=== PATIENT | male | born 1945 | race Caucasian/White ===

== ENCOUNTER 2018-04-13 09:40 | Inpatient (IN) | payer MEDICARE, OTHER, SELFPAY ==
[2018-04-13] VITALS (13 sets, daily range): BP systolic 127–145; BP diastolic 70–84; PULSE 61–82; RESP 16–18; TEMP 36.9–37.5; O2SAT 93–98; BMI 33.1
--- NOTE | 2018-04-13 10:42 | PCM.HP.STD ---
Problem List (1) Diabetes mellitus type 2 in obese Status: Acute (2) Left UVJ 2mm stone Status: Acute (3) Right renal cancer status post nephrecto Status: Chronic (4) Dyslipidemia Status: Chronic (5) Hypertension Status: Chronic History of Present Illness Date of Admission: 04/13/18 Chief Complaint: Left ureteric colic since Thursday The patient is a 73 year old M with history of rectal cancer status post nephrectomy about 8 years ago is being admitted on regular MedSurg floor directly from [place] [facility] after he had left ureteric colic since Thursday. Patient developed left flank pain on Thursday morning after he went for charge. He felt little nauseated and pain has gotten worse admitted came to [place] [facility] on Thursday evening. He had CT abdomen and was discharged on Cipro. His pain was little better and then again got worse yesterday for which he again went to [place] [facility] and had blood work, KUB x-ray and ultrasound. Denies fever, nausea or vomiting but he had chills. He is taking Cipro since Thursday. Patient also complained of his spot urine with intermittent and did not advocate urine output except few drops. Patient has Calderon catheter with no urine in urobag. ED blood work of 04/13/2018 shows normal CBC. BMP shows BUN 24, creatinine 2.1, glucose 159, phosphorus 4.3. UA[shows RBC 5-10 cells per hpf, pyuria negative trace bacteria. Nitrite negative and leukocyte esterase trace. ] Past Medical History Past Medical History (Chronic Problems): Chronic Problems Right renal cancer status post nephrecto (Chronic) Dyslipidemia (Chronic) Hypertension (Chronic) Allergies Sulfa (Sulfonamide Antibiotics) Allergy (Verified 04/13/18 09:59) Hives pregabalin [From Lyrica] Adverse Reaction (Verified 04/13/18 09:59) EXTREMELY VIOLENT Home Medications: Ambulatory Orders Medication Instructions Recorded Amlodipine [Norvasc] 5 mg PO DAILY 04/13/18 Aspirin [Aspirin, Baby] 81 mg PO QHS 04/13/18 Dulaglutide [Trulicity] 1.5 mg SQ QWEEK 04/13/18 Losartan Potassium [Losartan 50 mg PO QHS 04/13/18 Potassium] Metformin HCl 1,000 mg PO BID 04/13/18 Metoprolol Succinate [Toprol Xl] 25 mg PO DINNER 04/13/18 glipiZIDE [Glucotrol] 10 mg pe PO BID 04/13/18 Smoking Status: Former smoker - *Family History Paternal History Items: No pertinent history Review of Systems Constitutional: Reports: Chills HEENT: Denies: Head Aches, Sinus Congestion, Sinus Drainage Cardiovascular: Denies: Chest Pain, Palpitations Respiratory: Denies: Cough, Shortness of breath at rest, Sputum production Gastrointestinal: Reports: Abdominal Pain, Nausea. Denies: Vomiting Genitourinary: Reports: Retention, -. Denies: Dysuria Musculoskeletal: Denies: Joint Pain, Joint Tenderness Skin: Denies: Rash, Wounds Neurological: Denies: Numbness, Tingling, Focal weakness Psychiatric: Denies: Anxiety, Depression, Homicidal Ideations, Suicidal Ideations Hematologic/ Lymphatic: Denies: Easy Bruising, Easy Bleeding VTE Information - Inpt Only VTE Present on Admission: No VTE Mechan Device Prophylaxis: None VTE Pharm Prophylaxis ordered?: Yes Patient Problems: Active and Suspected Problems Diabetes mellitus type 2 in obese (Acute) Left UVJ 2mm stone (Acute) - Physical Exam General: Alert, Oriented x3, Cooperative HEENT: Atraumatic, PERRLA, EOMI, Normocephalic Neck: Supple, No JVD, Negative Carotid Bruits Lungs: Clear to auscultation, Normal air movement Cardiovascular: Regular rate, Normal S1, Normal S2, No murmurs Abdomen: Bowel Sounds Present, Soft, Tender - Severe tenderness present over left flank. Extremities: No edema, Capillary Refill Less than 3 Seconds Skin: No rashes, No breakdown Musculoskeletal: No Tenderness to Palpation of Joints or Extremities Neurological: Cranial nerves II-XII grossly intact Psych/Mental Status: Normal Affect, Appropriate Vital Signs Temp Pulse Resp BP Pulse Ox 98.6 F 80 18 145/75 H 96 04/13/18 10:00 04/13/18 10:28 04/13/18 10:00 04/13/18 10:00 04/13/18 10:00 Oxygen Delivery Method Room Air Weight: 231 lb Body Mass Index (BMI) 33.1 Assessment/Plan All Active Problems Diabetes mellitus type 2 in obese (Acute) Left UVJ 2mm stone (Acute) The patient is a 73 year old M with history of rectal cancer status post nephrectomy about 8 years ago is being admitted on regular MedSurg floor directly from [place] [facility] after he had left ureteric colic since Thursday. Patient developed left flank pain on Thursday morning after he went for charge. He felt little nauseated and pain has gotten worse admitted came to [place] [facility] on Thursday evening. He had CT abdomen and was discharged on Cipro. His pain was little better and then again got worse yesterday for which he again went to [place] [facility] and had blood work, KUB x-ray and ultrasound. He describes pain left flank radiating to left groin. Denies fever, nausea or vomiting but he had chills. He is taking Cipro since Thursday. Patient also complained of his spot urine with intermittent and did not advocate urine output except few drops. Patient has Calderon catheter with no urine in urobag. ED blood work of 04/13/2018 shows normal CBC. BMP shows BUN 24, creatinine 2.1, glucose 159, phosphorus 4.3. UA[shows RBC 5-10 cells per hpf, pyuria negative trace bacteria. Nitrite negative and leukocyte esterase trace. 1. Left ureteric colic most probably secondary to left UVJ stone, to December 27 size: Patient had workup in [place] ER with CBC, BMP, x-ray and ultrasound and earlier CT abdomen. CD is sent to radiology for upload. KUB is reported as no calcification within the expected location of left ureter. 3 mm calcification in the right pelvis corresponding to phleboliths on CT. Ultrasound kidney shows mild left hydronephrosis and 4.1 x 2.8 x 3.0 cm cortical exophytic cyst superior pole left kidney. Status post right nephrectomy. UA with reflex urine culture ordered. Urology consult to Dr. Elise for possible cystoscopy with left ureteric stent. Continue Cipro as it seems responding. 2. Acute kidney injury most probably secondary to postobstructive ureteric stone: His baseline creatinine is 1.0 as per the patient currently creatinine is 2.1, BUN 21. IV fluid normal saline. Rest as admission above. Hold nephrotoxic medications including oral hypoglycemic agent, metformin and losartan. 3. Right renal cancer status post nephrectomy: He did not require any further treatment after nephrectomy. In remission. 4. That is mellitus type II: Blood sugar is elevated Accu-Chek before meals and at bedtime and cover with NovoLog sliding insulin and long-acting insulin. 5. Other comorbidities include dyslipidemia, hypertension: Home medication reconciliation done. DVT prophylaxis: On heparin 5000 units subcutaneous twice daily. Code Visit Inpatient E&M: 73695 Init Hosp L3
--- NOTE | 2018-04-13 12:51 | PCM.CONS.U ---
Problem List (1) Left UVJ 2mm stone Status: Acute Comment: Solitary left kidney Reason for Consult Date of Consultation: 04/13/18 Reason for Consultation: 73-year-old male with solitary left kidney obstructing kidney stone History of Present Illness: The patient is a 73 year old male with a solitary left kidney has an obstructing kidney stone. He is transferred to an outside hospital is not making any urine his creatinine is up to 2.2. He has a catheter in place and no urine output I flushed the catheter the catheters in good position. He is having severe left flank pain Past Medical History Past Medical History (Chronic Problems): Chronic Problems Right renal cancer status post nephrecto (Chronic) Dyslipidemia (Chronic) Hypertension (Chronic) Allergies Sulfa (Sulfonamide Antibiotics) Allergy (Verified 04/13/18 09:59) Hives pregabalin [From Lyrica] Adverse Reaction (Verified 04/13/18 09:59) EXTREMELY VIOLENT Home Medications: Ambulatory Orders Medication Instructions Recorded Amlodipine [Norvasc] 5 mg PO DAILY 04/13/18 Aspirin [Aspirin, Baby] 81 mg PO QHS 04/13/18 Dulaglutide [Trulicity] 1.5 mg SQ QWEEK 04/13/18 Losartan Potassium [Losartan 50 mg PO QHS 04/13/18 Potassium] Metformin HCl 1,000 mg PO BID 04/13/18 Metoprolol Succinate [Toprol Xl] 25 mg PO DINNER 04/13/18 glipiZIDE [Glucotrol] 10 mg pe PO BID 04/13/18 Surgical History: - - Right radical nephrectomy Psychiatric History: No pertinent psych hx Lives: Spouse/ Significant Other Smoking Status: Former smoker Alcohol: None Drugs: None - *Family History Paternal History Items: No pertinent history Review of Systems Constitutional: Denies: Chills, Fever, Weight Change HEENT: Denies: Head Aches, Sinus Congestion, Sinus Drainage Cardiovascular: Denies: Chest Pain, Palpitations Respiratory: Denies: Cough, Shortness of breath at rest, Sputum production Gastrointestinal: Reports: - - No urine output. Denies: Abdominal Pain, Nausea, Vomiting Genitourinary: Denies: Dysuria Musculoskeletal: Denies: Joint Pain, Joint Tenderness Skin: Denies: Rash, Wounds Neurological: Denies: Numbness, Tingling, Focal weakness Psychiatric: Denies: Anxiety, Depression, Homicidal Ideations, Suicidal Ideations Hematologic/ Lymphatic: Denies: Easy Bruising, Easy Bleeding Physical Exam - Physical Exam Vital Signs Temp 98.6 F 04/13/18 10:00 Pulse 80 04/13/18 10:28 Resp 18 04/13/18 10:00 BP 145/75 H 04/13/18 10:00 Pulse Ox 96 04/13/18 10:00 Intake & Output 04/11/18 04/12/18 04/13/18 23:59 23:59 23:59 Weight: 104.78 kg General: Alert, Oriented x3 HEENT: Atraumatic Oral: Moist Mucosa Neck: Supple Cardiovascular: Regular rate Abdomen: Bowel Sounds Present, Soft Assessment/Plan All Active Problems Diabetes mellitus type 2 in obese (Acute) Left UVJ 2mm stone (Acute) 73-year-old male presents to the hospital an obstructing stone read on an outside CT scan of his left kidney is a history of kidney cancer and had a right radical nephrectomy about 8 years ago. Currently has a Calderon catheter in place with is not making any urine whatsoever is an uric. I believe he has complete obstruction from the small stone in the distal left ureter. Planted taken to surgery today for cystoscopy left retrograde pyelogram and left stent placement.
[2018-04-13 13:00] LABS: Bedside Glucose 181 mg/dL (70-110)
[2018-04-13] MEDS: Insulin Lispro 100 UNIT/ML INSULN.PEN SQ (13:02)
[2018-04-13] MEDS: Ciprofloxacin 200 MG/100 ML BAG 100 MG IV ×2 (13:02→21:56)
[2018-04-13] MEDS: 0.9% NaCl Peripheral Flush Adult/Peds IV (13:03)
[2018-04-13] MEDS: Morphine 2 MG/ML Syringe IV (13:04)
[2018-04-13] MEDS: 0.9% Normal Saline 1,000 ML 100 ML IV (13:15)
--- NOTE | 2018-04-13 15:22 | NURSING ---
Report called to Cierra CUN[place] in [facility].
[2018-04-13] MEDS: Metoprolol(XL)Succ 25 MG Tablet PO (16:45)
[2018-04-13 17:00] LABS: Bedside Glucose 143 mg/dL (70-110)
[2018-04-13] MEDS: Lidocaine Jelly 2% 20 ML Syringe (URO-JET) 20 APPLIC (17:20)
--- NOTE | 2018-04-13 17:31 | PCM.OPRPT ---
Problem List (1) Left UVJ 2mm stone Status: Acute Comment: Solitary left kidney Report of Operation Date of Procedure: 04/13/18 Pre-Operative Diagnosis: Obstructing left ureteral calculus in solitary kidney Post-Operative Diagnosis: Same Surgery/Procedure Performed:: Cystoscopy left retrograde pyelogram left stent placement Description of Surgical Findings:: 73-year-old male was taken back to the operating room at the smooth induction of MAC local he is placed supine on the table and then in dorsal lithotomy position the penis and testicles are prepped and draped in usual sterile fashion put lidocaine jelly into the urethra and then went into the bladder with a 21 [place] rigid cystourethroscope the entire length of the urethra is normal the prostate was slightly enlarged inside the bladder he had some what of a trabeculated bladder and thickened bladder identified the left ureteral orifice advanced a wire up the left side over the wire advanced the Pollack catheter performed a left retrograde pyelogram demonstrated contrast within the collecting system a mildly dilated system but not completely blown out I then advanced the Pollack catheter up on the left side left the wire in place and over the wire advanced a stent it was a 7 [place] 26 cm stent coiled in the kidney and bladder good position the bladder was drained and then put a catheter into the bladder for monitoring of his urine output he did appear dehydrated at this point he stented to relieve obstruction he should be rehydrated to produce more urine. Patient anesthetic is being reversed and on follow-up he will need to follow-up with urology to plan for extraction of the stone in the near future. Type of Anesthesia:: General Drains: velasquez, stent - Admit VTE Documentation VTE Present on Admission: No VTE Mechan Device Prophylaxis: SCD's
[2018-04-13] MEDS: Aspirin 81 MG TAB.CHEW PO (22:02)
[2018-04-13] MEDS: Heparin Injection (Vial) 5,000 UNIT/ML VIAL 5000 UNIT SC (22:03)
[2018-04-13] MEDS: 0.9% Normal Saline 1,000 ML 125 ML IV (22:03)
[2018-04-14 04:30] VITALS: BP 152/88; PULSE 67; RESP 18; TEMP 37.3; O2SAT 96
[2018-04-14 06:14] LABS: Absolute Lymphocyte Count 1.62 X10^3/ul (0.83-4.51); Absolute Neutrophil Count 4.1 X10^3/uL (2.0-7.7); Basophil# 0.01 X10^3/uL; Basophil% 0.1 % (0-1); Eosinophil# 0.13 X10^3/uL; Eosinophils% 1.9 % (0-5); Hematocrit 39.4 % (40-54); Hemoglobin 13.1 g/dl (13.0-16.5); Lymphocyte # 1.62 X10^3/ul (4.0); Lymphocyte % 24.3 % (19-41); Mean Corp Hgb Conc 33.2 g/gl (32-36); Mean Corpuscular Hgb 30.4 pg (27.0-32.0); Mean Corpuscular Volume 91.4 fL (80-94); Monocyte# 0.79 X10^3/uL; Monocyte% 11.8 % (0-10); Neutrophil # 4.12 X10^3/uL (2.7-7.7); Neutrophil % 61.8 % (47-70); Platelet Count 117 K/mm3 (150-450); RBC Distribution Width SD 42.5 fl (35.1-43.9); Red Blood Count 4.31 M/mm3 (4.6-6.2); White Blood Count 6.7 K/mm3 (4.4-11.0)
[2018-04-14 06:16] LABS: POSITIVE COUNT NO; POSITIVE DIFFERENTIAL NO; POSITIVE MORPHOLOGY NO
[2018-04-14] MEDS: 0.9% Normal Saline 1,000 ML 125 ML IV (06:21)
[2018-04-14 06:30] LABS: Anion Gap 10 (5-15); BUN 24 mg/dL (7-18); Calcium,Total 8.7 mg/dL (8.5-10.1); Chloride 113 mmol/L (98-107); EST Glomerular Filtration Rate 29 mL/min (>60); Est Glom Filt Rate - Afr Amer 35 mL/min (>60); Estimated Creatinine Clearance 29.15 ml/min; Glucose 110 mg/dL (74-106); Potassium 4.6 mmol/L (3.5-5.1); Sodium Level 144 mmol/L (136-145)
[2018-04-14 08:20] VITALS: BP 151/80; PULSE 71; RESP 18; TEMP 37.1; O2SAT 94
[2018-04-14 08:49] VITALS: PULSE 80
[2018-04-14] MEDS: Ciprofloxacin 200 MG/100 ML BAG 100 MG IV (10:00)
[2018-04-14] MEDS: Heparin Injection (Vial) 5,000 UNIT/ML VIAL 5000 UNIT SC ×2 (10:01→21:26)
[2018-04-14] MEDS: amLODIPine 5 MG Tablet PO (10:02)
--- NOTE | 2018-04-14 10:09 | PCM.PN.HOSP ---
Patient Problems: Active and Suspected Problems Diabetes mellitus type 2 in obese (Acute) Left UVJ 2mm stone (Acute) Solitary left kidney Subjective: Patient did not had fever. Patient had cystoscopy with retrograde pyelogram and stent placed by Dr. Elise. Patient has Mild hematuria in the uro bag. Creatinine went up. Urine culture pending. Vitals/I&O's: Vital Signs Temp Pulse Resp BP Pulse Ox 98.7 F 80 18 151/80 H 94 04/14/18 08:20 04/14/18 08:49 04/14/18 08:20 04/14/18 08:20 04/14/18 08:20 Oxygen Flow Rate (L/min) 2 Oxygen Delivery Method Room Air Weight: 231 lb Body Mass Index (BMI) 33.1 Intake and Output for Last 24 Hours 04/12/18 04/13/18 04/14/18 23:59 23:59 23:59 Intake Total 600 / 600 2190 / 2190 Output Total 175 / 175 2700 / 2700 Balance 425 / 425 -510 / -510 General: Alert, Oriented x3, Cooperative HEENT: Atraumatic, PERRLA, EOMI, Normocephalic Neck: Supple, No JVD, Negative Carotid Bruits Lungs: Clear to auscultation, Normal air movement Cardiovascular: Regular rate, Regular Rhythm, Normal S1, Normal S2, No murmurs Abdomen: Bowel Sounds Present, Soft, Non Tender, Non-Distended, - - Calderon Catheter shows bloody urine but mild. Extremities: No edema, Capillary Refill Less than 3 Seconds Skin: No rashes, No breakdown Musculoskeletal: No Tenderness to Palpation of Joints or Extremities, Arthritic Changes Neurological: Cranial nerves II-XII grossly intact, Neuro grossly intact Psych/Mental Status: Normal Affect, Appropriate Laboratory Results 04/13/18 12:55: POC Glucose 181 H 04/13/18 16:43: POC Glucose 143 H 04/14/18 05:54: WBC 6.7, RBC 4.31 L, Hgb 13.1, Hct 39.4 L, MCV 91.4, MCH 30.4, MCHC 33.2, RDW 13.0, RDW Differential 42.5, Plt Count 117 L, MPV 11.0, Immature Gran % (Auto) 0.100, Neut % (Auto) 61.8, Lymph % (Auto) 24.3, [place] % (Auto) 11.8 H, Eos % (Auto) 1.9, Baso % (Auto) 0.1, Absolute Neuts (auto) 4.1, Absolute Lymphs (auto) 1.62, Total Counted Not Reportable 04/14/18 05:54: Sodium 144, Potassium 4.6, Chloride 113 H, Carbon Dioxide 21.0, Anion Gap 10, BUN 24 H, Creatinine 2.40 H, Estim Creat Clear Calc 29.15, Est GFR (MDRD) Af Amer 35 L, Est GFR (MDRD) Non-Af 29 L, BUN/Creatinine Ratio 10.0, Glucose 110 H, Calcium 8.7 Current Medications Acetaminophen (Tylenol) 650 mg PO Q6H PRN PRN PRN Reason: Mild Pain (scale 0-3)/T>100.7 Amlodipine Besylate (Norvasc) 5 mg PO DAILY [facility] Last Admin: 04/14/18 10:02 Dose: 5 mg Aspirin (Aspirin, Baby) 81 mg PO QHS [facility] Last Admin: 04/13/18 22:02 Dose: 81 mg Bisacodyl (Dulcolax) 10 mg RECTAL DAILY PRN PRN PRN Reason: Constipation Dextrose (D50w Syringe) 0 gm IV X1 PRN; Protocol PRN Reason: Hypoglycemia Glucagon () 1 mg IM .X1 PRN PRN Reason: Hypoglycemia Heparin Sodium (Porcine) (Heparin Na) 5,000 unit SC BID [facility] Last Admin: 04/14/18 10:01 Dose: 5,000 unit Ciprofloxacin (Cipro) 200 mg in 100 mls @ 100 mls/hr IV Q12 [facility] Last Admin: 04/14/18 10:00 Dose: 100 mls/hr Insulin Glargine (Lantus (Bkc)) 10 units SC QHS [facility] Last Admin: 04/13/18 22:28 Dose: Not Given Insulin Human Lispro (Humalog Kwikpen (Bkc)) 0 unit SQ ACHS [facility] PRN Reason: Protocol Last Admin: 04/14/18 06:20 Dose: Not Given Magnesium Hydroxide (Milk Of Magnesia) 30 ml PO DAILY PRN PRN PRN Reason: Constipation Metoprolol Succinate (Toprol Xl (Beta Caro)) 25 mg PO DINNER [facility] Last Admin: 04/13/18 16:45 Dose: 25 mg Morphine Sulfate () 2 - 4 mg IV Q3H PRN PRN PRN Reason: Severe Pain (pain scale 6-10) Last Admin: 04/13/18 13:04 Dose: 4 mg Ondansetron HCl (Zofran) 4 mg IV Q6H PRN PRN PRN Reason: Nausea Oxycodone HCl (Oxyir) 5 mg PO Q4H PRN PRN PRN Reason: Moderate Pain (pain scale 4-5) Polyethylene Glycol (Miralax) 17 gm PO DAILY [facility] Last Admin: 04/14/18 10:02 Dose: Not Given Senna/Docusate Sodium (Senokot-S, Renata-Colace) 2 tablet PO BID PRN PRN Reason: constipation Sodium Chloride () 5 - 30 ml IV UD PRN PRN Reason: SALINE FLUSH Last Admin: 04/13/18 13:03 Dose: 10 ml Medical Necessity - Tobacco Use Smoking Status: Former smoker Assessment/Plan All Active Problems Diabetes mellitus type 2 in obese (Acute) Left UVJ 2mm stone (Acute) The patient is a 73 year old M with history of rectal cancer status post nephrectomy about 8 years ago is being admitted on regular MedSur floor directly from [place] [facility] after he had left ureteric colic since Thursday. Patient developed left flank pain on Thursday morning after he went for charge. He felt little nauseated and pain has gotten worse admitted came to [place] ER on Thursday evening. He had CT abdomen and was discharged on Cipro. His pain was little better and then again got worse yesterday for which he again went to [place] [facility] and had blood work, KUB x-ray and ultrasound. He describes pain left flank radiating to left groin. Denies fever, nausea or vomiting but he had chills. He is taking Cipro since Thursday. Patient also complained of his spot urine with intermittent and did not advocate urine output except few drops. Patient has Calderon catheter with no urine in urobag. ED blood work of 04/13/2018 shows normal CBC. BMP shows BUN 24, creatinine 2.1, glucose 159, phosphorus 4.3. UA[shows RBC 5-10 cells per hpf, pyuria negative trace bacteria. Nitrite negative and leukocyte esterase trace. 1. Left ureteric colic most probably secondary to left UVJ stone, to May 20 size: Patient had workup in [place] ER with CBC, BMP, x-ray and ultrasound and earlier CT abdomen. CD is sent to radiology for upload. KUB is reported as no calcification within the expected location of left ureter. 3 mm calcification in the right pelvis corresponding to phleboliths on CT. Ultrasound kidney shows mild left hydronephrosis and 4.1 x 2.8 x 3.0 cm cortical exophytic cyst superior pole left kidney. Status post right nephrectomy. UA shows 0 WBC count. Squamous epithelium 0-5 cells with negative nitrite and esterase. Urine culture negative. Last dose of Cipro today p.m. 2. Acute kidney injury most probably secondary to postobstructive ureteric stone: His baseline creatinine is 1.0 as per the patient currently creatinine is 2.1, BUN 21. BUN/creatinine 24/2.4. Continue IV fluid. Expect creatinine plateau or downward trend tomorrow. Patient wants to go home and was advised to stay till lab shows improvement in kidney function. Discussed with Dr. Elise. Rest as admission above. Hold nephrotoxic medications including oral hypoglycemic agent, metformin and losartan. 3. Right renal cancer status post nephrectomy: He did not require any further treatment after nephrectomy. In remission. 4. That is mellitus type II: Blood sugar is elevated Accu-Chek before meals and at bedtime and cover with NovoLog sliding insulin and long-acting insulin. 5. Other comorbidities include dyslipidemia, hypertension: Home medication reconciliation done. DVT prophylaxis: On heparin 5000 units subcutaneous twice daily. Laboratory Results 04/13/18 16:43: POC Glucose 143 H 04/14/18 05:54: WBC 6.7, RBC 4.31 L, Hgb 13.1, Hct 39.4 L, MCV 91.4, MCH 30.4, MCHC 33.2, RDW 13.0, RDW Differential 42.5, Plt Count 117 L, MPV 11.0, Immature Gran % (Auto) 0.100, Neut % (Auto) 61.8, Lymph % (Auto) 24.3, [place] % (Auto) 11.8 H, Eos % (Auto) 1.9, Baso % (Auto) 0.1, Absolute Neuts (auto) 4.1, Absolute Lymphs (auto) 1.62, Total Counted Not Reportable 04/14/18 05:54: Sodium 144, Potassium 4.6, Chloride 113 H, Carbon Dioxide 21.0, Anion Gap 10, BUN 24 H, Creatinine 2.40 H, Estim Creat Clear Calc 29.15, Est GFR (MDRD) Af Amer 35 L, Est GFR (MDRD) Non-Af 29 L, BUN/Creatinine Ratio 10.0, Glucose 110 H, Calcium 8.7 04/14/18 11:00: Urine Color Red, Urine Clarity Cloudy, Urine pH 6.0, Ur Specific [place] 1.010, Urine Protein 30 H, Urine Glucose (UA) Normal, Urine Ketones Negative, Urine Occult Blood 250 H, Urine Nitrite Negative, Urine Bilirubin Negative, Urine Urobilinogen Normal, Ur Leukocyte Esterase 25 H, Urine RBC > 100 SEEN, Urine WBC 0 SEEN, Ur Squamous Epith Cells 0-5 SEEN, Urine Bacteria RARE, Urine Mucus 0 SEEN Code Visit Inpatient E&M: 64153 Subs Hosp L3
--- NOTE | 2018-04-14 10:55 | CASEMGMT ---
OCTAVOI THOMAS Face to Face with patient for initial transition planning/care coordination assessment. RN MARTHA introduced self and role at [facility]. Patient lying in bed, alert and oriented. Patient willing to participate in assessment and is able to answer all questions appropriately. Care providers, pharmacy, and demographics verified. Patient lives with in a house and is independent at home. Patient has a Cpap at home. Pt wishes to discharge home, denies need for home health at this time. Patient states he has no further needs or concerns at this time. CM to follow for discharge planning needs that may arise. Disposition Plan: Patient to discharge home with family support and follow-up plans in place.
[2018-04-14 11:01] LABS: Mucous, Urine 0 SEEN /hpf (<or=2+); White Blood Cells 0 SEEN /hpf (0-5)
[2018-04-14 11:09] LABS: Color, Urine Red (Yellow); Glucose, Dipstick Normal (Normal); Ketone-Dipstick Negative (Negative); Leukocyte Esterase-Dipstick 25 /ul (Negative); Nitrite-Dipstick Negative (Negative); Occult Blood-Urine 250 /ul (Negative); Protein-Dipstick 30 mg/dl (Negative); Urine Bilirubin Dipstick Negative (Negative); Urine Clarity Cloudy (Clear); Urine Urobilinogen Normal (Normal)
[2018-04-14 11:14] LABS: Red Blood Cells-Urine > 100 SEEN /hpf (0-5)
[2018-04-14 11:15] LABS: Bacteria RARE /hpf (None Seen)
[2018-04-14 11:16] LABS: Squamous Epithelial Cells - UA 0-5 SEEN /hpf (0-5)
[2018-04-14] MEDS: Polyethylene Glycol 3350 17 GM PACKET PO (13:32)
[2018-04-14 15:00] VITALS: BP 140/80; PULSE 65; RESP 16; TEMP 36.7; O2SAT 95
--- NOTE | 2018-04-14 16:04 | NURSING ---
pt has chip blood glucose scanner noon was 160 and pt declined insulin will ameya glucose at supper time and re evaluate
[2018-04-14] MEDS: 0.9% Normal Saline 1,000 ML 100 ML IV (16:30)
[2018-04-14 16:58] VITALS: PULSE 86
[2018-04-14] MEDS: Metoprolol(XL)Succ 25 MG Tablet PO (16:58)
[2018-04-14] MEDS: Ciprofloxacin 250 MG Tablet PO (16:59)
[2018-04-14 20:00] VITALS: BP 153/87; PULSE 63; RESP 18; TEMP 37.4; O2SAT 95
[2018-04-14] MEDS: Acetaminophen 325 MG Tablet 650 MG PO (20:19)
[2018-04-14] MEDS: Aspirin 81 MG TAB.CHEW PO (21:26)
[2018-04-15 06:22] VITALS: BP 142/86; PULSE 66; RESP 18; TEMP 36.9; O2SAT 97
[2018-04-15 06:36] LABS: Anion Gap 8 (5-15); BUN 20 mg/dL (7-18); BUN/Creat Ratio 12.1 RATIO (10-20); Calcium,Total 9.4 mg/dL (8.5-10.1); Chloride 110 mmol/L (98-107); Creatinine, Serum 1.65 mg/dL (0.70-1.30); EST Glomerular Filtration Rate 44 mL/min (>60); Est Glom Filt Rate - Afr Amer 53 mL/min (>60); Glucose 125 mg/dL (74-106); Potassium 4.2 mmol/L (3.5-5.1); Sodium Level 144 mmol/L (136-145)
--- NOTE | 2018-04-15 07:18 | PCM.PN.BLA ---
Progress Note good uop cr coming down ok to go home call with questions.
[2018-04-15 07:49] VITALS: BP 140/88; PULSE 61; RESP 18; TEMP 37.1; O2SAT 92
--- NOTE | 2018-04-15 07:51 | PCM.DC ---
- Discharge Diagnoses Current Active Problems: Current Active and Chronic Problems Diabetes mellitus type 2 in obese (Acute) Left UVJ 2mm stone (Acute) Solitary left kidney Right renal cancer status post nephrecto (Chronic) Dyslipidemia (Chronic) Hypertension (Chronic) You will use the following diet at home:: Calorie/Carbohydrate Controlled (specify 1200, 1400, etc) - 1800 ADA diet Discharge Activity: Return to Normal Activity Allergies/Adverse Reactions: Allergies Sulfa (Sulfonamide Antibiotics) Allergy (Verified 04/13/18 09:59) Hives pregabalin [From Lyrica] Adverse Reaction (Verified 04/13/18 09:59) EXTREMELY VIOLENT Medications to take at Discharge Amlodipine [Norvasc] 5 mg PO DAILY 04/13/18 Aspirin [Aspirin, Baby] 81 mg PO QHS 04/13/18 Dulaglutide [Trulicity] 1.5 mg SQ QWEEK 04/13/18 Metoprolol Succinate [Toprol Xl] 25 mg PO DINNER 04/13/18 Losartan Potassium 50 mg PO QHS #0 04/15/18 Metformin HCl 1,000 mg PO BID #0 04/15/18 glipiZIDE [Glucotrol] 10 mg pe PO BID #0 04/15/18 Primary Care Physician: Clifton Gutierrez MD [Primary Care Provider] - Please follow up with your Primary Care Physician in: F/U BMP IN 1 week FOR JUANI secondary to left ureter stone Test Results: Test results from this visit will be discussed in further detail at your follow-up appointment, if applicable. Please Follow Up With: Hussein Elise MD When: IN 2-3 weeks
--- NOTE | 2018-04-15 07:54 | PCM.DC.SUM ---
Discharge Date and Diagnosis Date of Admission: 04/13/18 Date of Discharge: 04/15/18 - Primary Discharge Diagnosis Active and Suspected Problems Left ureteric colic most probably secondary to left UVJ stone, 20 mm size status post cystoscopy and left ureteric stent: UTI ruled out 2. Acute kidney injury most probably secondary to postobstructive ureteric stone: 3. Right renal cancer status post nephrectomy: 4. Diabetes mellitus type II: - Secondary Discharge Diagnosis Chronic Problems Right renal cancer status post nephrecto (Chronic) Dyslipidemia (Chronic) Hypertension (Chronic) Hospital Course and Treatment Summary of Care Provided: [] The patient is a 73 year old M with history of rectal cancer status post nephrectomy about 8 years ago is being admitted on regular MedSurg floor directly from [place] [facility] after he had left ureteric colic since Thursday. Patient developed left flank pain on Thursday morning after he went for charge. He felt little nauseated and pain has gotten worse admitted came to [place] [facility] on Thursday evening. He had CT abdomen and was discharged on Cipro. His pain was little better and then again got worse yesterday for which he again went to [place] [facility] and had blood work, KUB x-ray and ultrasound. He describes pain left flank radiating to left groin. Denies fever, nausea or vomiting but he had chills. He is taking Cipro since Thursday. Patient also complained of his spot urine with intermittent and did not advocate urine output except few drops. Patient has Calderon catheter with no urine in urobag. ED blood work of 04/13/2018 shows normal CBC. BMP shows BUN 24, creatinine 2.1, glucose 159, phosphorus 4.3. UA[shows RBC 5-10 cells per hpf, pyuria negative trace bacteria. Nitrite negative and leukocyte esterase trace. Patient was seen and examined. General: Alert, Oriented x3, Cooperative HEENT: Atraumatic, PERRLA, EOMI, Normocephalic Neck: Supple, No JVD, Negative Carotid Bruits Lungs: Clear to auscultation, Normal air movement Cardiovascular: Regular rate, Regular Rhythm, Normal S1, Normal S2, No murmurs Abdomen: Bowel Sounds Present, Soft, Non Tender, Non-Distended, -Calderon catheter discontinued. Patient voided spontaneously. Extremities: No edema, Capillary Refill Less than 3 Seconds Skin: No rashes, No breakdown Musculoskeletal: No Tenderness to Palpation of Joints or Extremities, Arthritic Changes Neurological: Cranial nerves II-XII grossly intact, Neuro grossly intact Psych/Mental Status: Normal Affect, Appropriate Hospital course and management as follows 1. Left ureteric colic most probably secondary to left UVJ stone, 20 mm size: Patient had workup in [place] [facility] with CBC, BMP, x-ray and ultrasound and earlier CT abdomen. KUB is reported as no calcification within the expected location of left ureter. 3 mm calcification in the right pelvis corresponding to phleboliths on CT. Ultrasound kidney shows mild left hydronephrosis and 4.1 x 2.8 x 3.0 cm cortical exophytic cyst superior pole left kidney. Status post right nephrectomy. Patient had cystoscopy and retrograde pyelogram and stenting in left ureter by Dr. Elise. UA shows 0 WBC count. Squamous epithelium 0-5 cells with negative nitrite and esterase. Urine culture negative. Urine culture did not show any growth. UA was also negative for UTI. Patient completed last dose of antibiotic yesterday, which was more prophylactic for cystoscopy and ureteric stent 2. Acute kidney injury most probably secondary to postobstructive ureteric stone: His baseline creatinine is 1.0 as per the patient currently creatinine is 2.1, BUN 21. BUN/creatinine 24/2.4. Continue IV fluid. Creatinine improved to 1.65. IV fluids discontinued Discussed with Dr. Elise. Rest as admission above. Hold nephrotoxic medications including oral hypoglycemic agent, metformin and losartan. 3. Right renal cancer status post nephrectomy: He did not require any further treatment after nephrectomy. In remission. 4. Diabetes mellitus type II: Blood sugar is elevated Accu-Chek before meals and at bedtime and cover with NovoLog sliding insulin and long-acting insulin. 5. Other comorbidities include dyslipidemia, hypertension: DVT prophylaxis: On heparin 5000 units subcutaneous twice daily. Discharge medication reconciliation done. Discharge follow-up instructions completed. Patient was advised to follow-up with Dr. Elise in 2 weeks. Follow with PCP. Total time spent, exact 35 minutes on discharge meds reconciliation, examination, review of imaging and blood test and discussion with the patient and his on follow-up instructions. Discharge Activity: Return to Normal Activity Home Medications: Medications to take at Discharge Amlodipine [Norvasc] 5 mg PO DAILY 04/13/18 Aspirin [Aspirin, Baby] 81 mg PO QHS 04/13/18 Dulaglutide [Trulicity] 1.5 mg SQ QWEEK 04/13/18 Metoprolol Succinate [Toprol Xl] 25 mg PO DINNER 04/13/18 Losartan Potassium 50 mg PO QHS #0 04/15/18 Metformin HCl 1,000 mg PO BID #0 04/15/18 glipiZIDE [Glucotrol] 10 mg pe PO BID #0 04/15/18 Primary Care Physician: Clifton Gutierrez MD [Primary Care Provider] - Please follow up with your Primary Care Physician in: F/U BMP IN 1 week FOR JUANI secondary to left ureter stone Please Follow Up With: Hussein Elise MD When: IN 2-3 weeks Medical Necessity - Tobacco Use Smoking Status: Former smoker Meaningful Use Info Meaningful Use Diagnoses (Choose all that apply): None applicable Code Visit Inpatient E&M: 49907 Disch Hosp
[2018-04-15] MEDS: amLODIPine 5 MG Tablet PO (07:56)
== END 2018-04-15 10:27 | disposition home or self-care (01) | DRG 694 ==
PROVIDERS: Urology; Admitting Provider Internal Medicine; Family Provider Internal Medicine; PCP Internal Medicine; Visit Provider Internal Medicine
PROC: 0T778DZ Dilation of Left Ureter with Intraluminal Device, Via Natural or Artificial Opening Endoscopic (ICD-10-PCS; principal; 2018-04-13 09:25)
DX: N13.2 Hydronephrosis with renal and ureteral calculous obstruction (principal); N17.9 Acute kidney failure, unspecified; E78.5 Hyperlipidemia, unspecified; I10 Essential (primary) hypertension; Z90.5 Acquired absence of kidney; E11.9 Type 2 diabetes mellitus without complications; Z87.891 Personal history of nicotine dependence; Z85.528 Personal history of other malignant neoplasm of kidney; Z79.899 Other long term (current) drug therapy
CPT/HCPCS: 36415; 76000; 80048; 81001; 82962; 85025; 87086; J7030; J7040; A4216; C1769; C1874; J0744

== ENCOUNTER → 2018-05-07 15:48 | Outpatient (CLI) | payer MEDICARE, OTHER, SELFPAY ==
--- NOTE | 2018-05-07 12:09 | CALC_PTH ---
PATIENT: BRYAN RAMIREZ LOC: [facility] U#:[id number] AGE/SX: 80/M ROOM: RE05/07/[address]: Dr. Hussein Elise MD : 1945 BED: DIS: SPEC #: [id number] RECD: 05/07/18 17:02 STATUS: YOCASTA RO #: [id number] JOANNA: 05/07/18 12:[address]: Hussein Elise DEPT: SURGICAL PATHOLOGY RECD BY: Efraín Monae ENTERED: 05/10/18 08:29 SP TYPE: Calculi OTHR DR: Dr. Clifton Gutierrez MD [facility] Tissues: CALCULI Procedures: Surgery Specimen Level I HEADER OPERATION: Left ureteroscopy, basket stone, left ureteral stent removal PRE-OP DIAGNOSIS: Left ureteral calculus TISSUE SUBMITTED: Left ureteral stone GROSS DIAGNOSIS Fragment of stone, clinically left ureteral stone. SJ:emre 10/1/18 COMMENT If chemical analysis is requested on this specimen, please notify the laboratory. GROSS DESCRIPTION Received is one container labeled with the patient's name and not further designated. The specimen consists of a cook-white stone measuring 0.2 x 0.2 x 0.1 cm. The specimen is for gross identification and saved for analysis if needed. / CLAU:emre 05/10/18 CPT: 65651
== END ==
PROVIDERS: Family Provider Internal Medicine; PCP Internal Medicine; Referring Provider Urology; Visit Provider Urology
DX: N20.1 Calculus of ureter (principal)
CPT/HCPCS: 88300

== ENCOUNTER → 2018-06-01 12:54 | Outpatient (CLI) | payer MEDICARE, OTHER, SELFPAY ==
--- NOTE | 2018-06-01 13:14 | RAD_ITS ---
STUDY: X-RAY - ABDOMEN/PELVIS REASON FOR EXAM: Male, 73 years old. Follow-up left-sided stone. TECHNIQUE: Two AP supine views of the abdomen and pelvis. COMPARISON: None. FINDINGS: Non-visualized lung bases. There is an unremarkable bowel gas pattern. There is no demonstrated free abdominal air. The visualized liver, spleen and kidneys are grossly normal in size and morphology. Small, irregular shaped calcific densities project in the medial right flank, overlapping the posterior 11-12 ribs as well as just above the right iliac crest. Also just above the iliac crest and lateral to the irregular shaped calcific densities is a smooth, rounded 1-2 mm calcification. There are few small calcifications in the lower pelvis, as well as nearly 1 cm elongated calcification projecting the pelvic tissues between the right sacrum and right ischial spine. There are multilevel degenerative changes of the visualized spine. Degenerative changes also seen in the bilateral sacroiliac and hip joints. RAD/Abdomen Single View IMPRESSION: 1. Irregular shaped calcifications as well as focal 1-2 calcification in the medial soft tissues of the right flank. None of these clearly correspond to a specific anatomic structure, although calcifications within the bowel or vascular calcifications might have this appearance. 2. Calcifications in the pelvic soft tissues, which are also likely vascular. Distal right ureteral stone not excluded, however, and correlation with any previous outside imaging would be useful. If indicated, one could also consider noncontrast CT for further evaluation. Electronically Signed: Alfonso Arshad MD at 14:52 EDT , Service support ,
== END ==
PROVIDERS: Family Provider Internal Medicine; PCP Internal Medicine; Referring Provider Urology; Visit Provider Urology
DX: N20.1 Calculus of ureter (principal)
CPT/HCPCS: 74018

== ENCOUNTER → 2019-03-24 10:59 | Outpatient (CLI) | payer MEDICARE, OTHER, SELFPAY ==
[2018-04-13 15:10] VITALS: BMI 33.1
--- NOTE | 2019-03-24 11:06 | RAD_ITS ---
STUDY: X-RAY - ABDOMEN/PELVIS REASON FOR EXAM: Male, 74 years old. History of kidney stones. TECHNIQUE: Two AP supine views of the abdomen and pelvis. COMPARISON: June 01, 2018. FINDINGS: Normal visualized lung bases. There is an unremarkable bowel gas pattern. There is no demonstrated free abdominal air. Again seen are irregular calcific density in the right mid abdomen appears unchanged from the prior study. Slightly approximate position of the right kidney. Again seen are small calcific densities overlying the right iliac crest which appear unchanged. The visualized liver, spleen and kidneys are grossly normal in size and morphology. Normal soft tissue structures. There are diffuse degenerative changes of the visualized lumbar spine. RAD/Abdomen Single View IMPRESSION: Stable findings when compared to June 01, 2018. Electronically Signed: Kris Arnold DO at 17:09 EDT Tel [phone], Service support ,
== END ==
PROVIDERS: Family Provider Internal Medicine; PCP Internal Medicine; Referring Provider Urology; Visit Provider Urology
DX: N20.0 Calculus of kidney (principal)
CPT/HCPCS: 74018

== ENCOUNTER → 2019-04-08 13:15 | Outpatient (CLI) | payer MEDICARE, OTHER, SELFPAY ==
--- NOTE | 2019-04-08 13:18 | CT_ITS ---
STUDY: CT ABDOMEN AND PELVIS WITHOUT CONTRAST REASON FOR EXAM: Male, 74 years old. History of renal cancer and nephrectomy. Rule out renal stone. Prostate cancer. RADIATION DOSAGE (If Supplied By Facility): CTDIvol = ( 20.66 ) mGy, DLP = ( 1192.65 ) mGycm TECHNIQUE: Transaxial images were obtained from the dome of the diaphragm to the symphysis pubis without oral contrast, and without intravenous contrast. Sagittal and coronal images were reconstructed. Individualized dose optimization techniques were used for this CT. COMPARISON: None. FINDINGS: Limited views through the lower chest show elevation of the right hemidiaphragm. Platelike probable scarring and granuloma seen in the right lung base. This exam is limited by the absence of IV and oral contrast. Liver is unremarkable. There is cholelithiasis. Grossly normal pancreas. Calcified granulomas in otherwise normal spleen. Adrenal glands unremarkable. Absent right kidney. In the right renal bed there is an elongated, lobulated peripherally calcified mass 3.9 cm size. This may be a calcified postsurgical hematoma/seroma. Left kidney shows no evidence for hydronephrosis. There is a punctate nonobstructing left upper pole stone. There is a 4.3 cm exophytic probable cyst of the left upper pole. Soft tissue nodules and small masses consistent with adenopathy are seen in the right retrocrural space, in the epigastric space, as much as 1.8 cm size as seen on axial images 38-54. Evaluation of the GI tract is limited by absence of oral contrast. Cannot exclude stomach wall thickening. No dilated loops of bowel or evidence for obstruction. Cannot exclude segmental thickening of the pond of the small or large bowel. Cannot exclude enteritis or colitis. Moderate to marked diffuse fecal retention. Diverticulosis without definite diverticulitis. Appendix within normal limits. There is diffuse atherosclerotic calcification of the abdominal aorta, without a demonstrated aneurysm. Normal inferior vena cava. Normal retroperitoneum. Probable diffuse thickening of the urinary bladder. There is enlargement of the prostate gland. There is a left-sided inguinal hernia containing adipose tissue. There are diffuse degenerative changes of the visualized lumbar spine. CT/Abdomen/Pelvis without Cont IMPRESSION: Exam is limited by the absence of IV and oral contrast. There appears to be scattered epigastric adenopathy. Cholelithiasis. [id number] diffuse fecal retention. Left inguinal hernia. Prostate enlargement and probable bladder wall thickening from chronic bladder outlet obstruction. Electronically Signed: Corey Salamanca MD at 17:10 EDT , Service support ,
== END ==
PROVIDERS: Family Provider Internal Medicine; PCP Internal Medicine; Referring Provider Urology; Visit Provider Urology
DX: N20.0 Calculus of kidney (principal)
CPT/HCPCS: 74176